=== PATIENT | female | born 1965 | race Caucasian/White ===

== ENCOUNTER 2017-04-02 19:20 | Emergency (ER) | payer OTHER ==
[~2017-04-02] VITALS: Ht 162.6 cm; Wt 56.7 kg
[2017-04-02 20:22] LABS: ABSOLUTE BASOPHILS 0.1 thou/uL (0.0-0.2); ABSOLUTE EOSINOPHILS 0.1 thou/uL (0.0-0.7); ABSOLUTE LYMPHOCYTES 1.7 thou/uL (0.8-5.3); ABSOLUTE MONOCYTES 0.8 thou/uL (0.0-1.2); ABSOLUTE NEUTROPHILS 4.5 thou/uL (1.6-8.1); BASOPHILS 0.9 %; HEMATOCRIT 37.5 % (37.0-47.0); HEMOGLOBIN 12.5 gm/dL (12.0-15.0); LYMPHOCYTES 23.2 %; MCH 32.3 pg (26.0-34.0); MCHC 33.4 g/dL (28.0-37.0); MCV 96.7 fL (80.0-100.0); MONOCYTES 10.8 %; MPV 8.3 fl. (7.2-11.1); NUCLEATED RBCS 0 /100WBC; PLATELET COUNT* 214 thou/uL (150-400); POLYS 63.1 %; RBC 3.88 mil/uL (4.20-5.00); RDW-CV 14.3 % (10.5-14.5); WBC 7.2 thou/uL (4.0-11.0)
[2017-04-02 20:30] LABS: ANION GAP 4 mmol/L (7-16); BUN 12 mg/dL (7-18); CALCIUM 8.4 mg/dL (8.5-10.1); CHLORIDE 102 mmol/L (98-107); CO2 30 mmol/L (21-32); CREATININE 0.7 mg/dL (0.6-1.3); GLUCOSE 117 mg/dL (70-99); POTASSIUM 3.7 mmol/L (3.5-5.1); SODIUM 136 mmol/L (136-145)
[2017-04-02 20:37] LABS: ALBUMIN 3.3 g/dL (3.4-5.0); ALKALINE PHOSPHATASE 45 U/L (46-116); SGOT 23 U/L (15-37); SGPT 26 U/L (30-65); TOTAL BILIRUBIN 0.2 mg/dL (<0.1-1.0); TOTAL PROTEIN 6.9 g/dL (6.4-8.2); TROPONIN-I LEVEL <0.06 ng/mL (<0.06)
[2017-04-02 21:16] VITALS: BP 116/60
--- NOTE | 2017-04-03 12:03 | EKG ---
[place] [address] ELECTROCARDIOGRAM REPORT Name: MARIN BOWENS Karishma Room: [facility]#: [id number] Admission: 04/02/17 Attend Phys: Discharge: 04/02/17 Date of : 65 Report #: [id number] THIS REPORT FOR: //name// [facility] ED Test Date: 2017-04-02 Test Time: 19:27:57 Pat Name: MARIN BOWENS Department: Room: Gender: F Critical Care Transport Nurse: ANTIONE Guillen : 1965 Requested By: Magnolia Gonzalez Order Number: [id number] MD: Alli Paniagua Measurements Intervals [place] Rate: 68 P: 64 VT: 198 QRS: 28 QRSD: 97 T: 52 QT: 369 QTc: 393 Interpretive Statements Sinus rhythm Left atrial enlargement RSR' in V1 or V2, right VCD or RVH Compared to ECG 08/28/2010 14:03:51 no change Electronically Signed On 04-03-2017 12:02:55 PBX INSPECTOR by Alli Paniagua [email or web address] <ELECTRONICALLY SIGNED> By: Alli Paniagua MD, [facility] 04/03/17 1202 26 26 Alli Paniagua MD, [facility] /EPI
== END 2017-04-02 21:17 | disposition home or self-care (01) ==
LOC: M.ERS 19:20
PROVIDERS: Emergency Medicine
DX: R00.2 Palpitations (principal); Z88.6 Allergy status to analgesic agent

== ENCOUNTER → 2017-12-27 | Outpatient (CLI) | payer OTHER | LOC: M.RAD 09:39 | DX: M17.0 Bilateral primary osteoarthritis of knee (principal); M25.562 Pain in left knee; M25.561 Pain in right knee ==

== ENCOUNTER → 2018-01-17 | Outpatient (CLI) | payer OTHER | LOC: M.RAD 15:22 | DX: M25.561 Pain in right knee (principal); M25.562 Pain in left knee ==